=== PATIENT | female | born 1995 | race Caucasian/White ===

== ENCOUNTER 2017-06-14 09:50 | Day surgery (SDC) | payer BC ==
[~2017-06-14 09:50] MED LIST: ACETAMINOPHEN 1,000 MG/100 ML BTL IV ONE; CEFAZOLIN 2 Gram 2 GM/50 ML BAG IVPB ONE
[2017-06-14] MEDS ORDERED: BUPIVACAINE 0.25% W/EPI MPF 30ML VIAL IVP ONE (09:51)
[2017-06-14] MEDS ORDERED: FENTANYL PF 100MCG/2ML VIAL IV ONE (09:51)
[2017-06-14] MEDS ORDERED: LIDOCAINE 2% MDV (20MG/ML) 20ML VIAL IV ONE (09:51)
[2017-06-14] MEDS ORDERED: MIDAZOLAM HCL 2MG/2ML VIAL IV ONE (09:51)
[2017-06-14] MEDS ORDERED: PROPOFOL 10 MG/ML VIAL IV ONE (09:51)
--- NOTE | 2017-06-17 13:11 | Operative Note ---
DATE OF SURGERY: 06/14/2017 Surgeon: Juma Blake DO PREOPERATIVE DIAGNOSIS: Right neck mass. POSTOPERATIVE DIAGNOSIS: Right neck mass. OPERATION: Excision right neck mass. This is a 2 cm lymph node down to the fascia. Indication: The patient is a 21-year-old female who had enlarging mass on her right neck for quite some time. On exam, this is probably a lymph node. We did discuss excision versus FNA versus observation. She desired surgical excision. Risks include but are not limited to bleeding, infection, acute or chronic pain, unfavorable cosmetic outcome, injury to accessory nerve. She understood this fully. PROCEDURE: Thereafter, consent was signed and questions answered. The patient was taken to the operating room and placed in a supine position. She was rotated into left lateral position. Propofol anesthesia was titrated to effect. Her neck was prepped and draped in the usual fashion. The area over the mass was anesthetized with a total of 5 mL of 0.25% Sensorcaine with epinephrine. A 2 cm incision was made. This was carried down through the subcutaneous tissues. Her SCM muscle was identified. This was retracted medially and we came down to the capsule of a large lymph node. This was dissected free from surrounding tissue. The pedicle was tied off with 2-0 Vicryl. This was then passed off the field and sent fresh for flow cytometry. The wound was then noted to be hemostatic. It was closed with 3-0 and 4-0 Vicryl. She was taken to the recovery room in satisfactory condition. Final pathology pending. [facility]
== END 2017-06-14 13:00 | disposition home or self-care (01) ==
LOC: SUR 09:50
PROVIDERS: ATTEND Surgery
DX: D36.0 Benign neoplasm of lymph nodes (principal)
CPT/HCPCS: 38500; 00320; 81025; J3010; J0690